=== PATIENT | female | born 1965 | race Caucasian/White ===

== ENCOUNTER 2016-12-20 16:34 | Emergency (ER) | payer SELFPAY ==
[2016-12-20 16:43] VITALS: BP 125/80; BMI 49.9
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
[2016-12-20] MEDS ORDERED: SILVADENE ONE (20:46)
[2016-12-20] MEDS ORDERED: MOTRIN TAB 800 MG PO ONE ×2 (21:22→21:26)
[2016-12-20] MEDS ORDERED: SILVADENE TOP NR (22:00)
== END 2016-12-20 21:33 | disposition home or self-care (01) ==
LOC: ER 16:47
PROC: 2W28X4Z Dressing of Right Upper Extremity using Bandage (ICD-10-PCS; principal; 2016-12-20)
DX: T23.121A Burn of first degree of single right finger (nail) except thumb, initial encounter (principal); T23.221A Burn of second degree of single right finger (nail) except thumb, initial encounter; X10.2XXA Contact with fats and cooking oils, initial encounter
CPT/HCPCS: 16020; 99282; 99283

== ENCOUNTER → 2017-05-28 | Outpatient (CLI) | payer SELFPAY ==
--- NOTE | 2017-05-28 13:03 | RAD ---
HISTORY: Pain Study: Right knee series Comparison: None Findings: There is moderate to severe joint space narrowing in the knee which is more prominent medially with p rominent osteophytes throughout. No fracture or dislocation is seen. There is moderate narrowing amximus g the patellofemoral joint with mild osteophytes throughout. The bones are well mineralized. There is no joint effusion and no calcifications are seen in the joint. IMPRESSION: Moderately severe osteoarthritic changes in the knee which is more prominent medially and moderate pa tellofemoral degenerative changes with no acute abnormality seen. Reported By:
--- NOTE | 2017-05-28 15:14 | US ---
History: Right lower quadrant pain, history of ovarian cysts, previous hysterectomy Study: Ultrasound transvaginal Findings: Transvaginal imaging of the pelvis and limited transabdominal imaging is performed. The shar greer is surgically absent. The ovaries are fairly symmetric in size with no solid mass or cyst demonst rated. There is no free fluid. Impression: Previous hysterectomy. Reported By:
== END | disposition home or self-care (01) ==
LOC: RAD 10:30
PROVIDERS: ATTEND Family Medicine
DX: N83.202 Unspecified ovarian cyst, left side (principal); N83.201 Unspecified ovarian cyst, right side; M25.561 Pain in right knee; M17.11 Unilateral primary osteoarthritis, right knee
CPT/HCPCS: 73560; 76830

== ENCOUNTER → 2017-06-21 | Outpatient (CLI) | payer SELFPAY ==
[2017-06-21 11:20] LABS: HEMOGLOBIN A1C 6.1 % (4.5-6.2)
[2017-06-21 11:29] LABS: ALANINE AMINOTRANSFERASE 39 Units/L (12-78); ALBUMIN 3.4 g/dL (3.4-5.0); ALKALINE PHOSPHATASE 65 Units/L (46-116); ASPARTATE AMINO TRANSFERASE 19 Units/L (15-37); BLOOD UREA NITROGEN 16 mg/dL (7-18); CARBON DIOXIDE 27.1 mmol/L (21-32); CHLORIDE 102 mmol/L (98-107); CHOL/HDL RATIO 3.6 (0.0-5.0); CHOLESTEROL 136 mg/dL (0-200); COR NA(FOR HYPERGLY) 140 mmol/L (136-145); CREATININE 0.93 mg/dL (0.55-1.02); HDL CHOLESTEROL 38 mg/dL (40-60); SODIUM 139 mmol/L (136-145); TOTAL PROTEIN 7.4 g/dL (6.4-8.2); TRIGLYCERIDES 84 mg/dL (0-150); TSH (3RD GENERATION) 1.409 uIU/mL (0.358-3.74); eGFR BLACK RACES > 60 (>60); eGFR NON BLACK RACES > 60 (>60)
--- NOTE | 2017-06-21 17:55 | CT ---
Indication: Back pain . Exam: CT scan lumbar spine without contrast. Technique: Axial spiral images were obtained from the level of T11 through the upper lumbar region wi thout contrast reconstructed at 2 mm intervals with coronal and sagittal multiplanar reconstructions. Findings: The lumbar vertebra are well aligned. There is adox-ip-rmlsodus disc space narrowing throug hout with minimal subluxation of L4 on L5. No fracture is seen. There are no pars defects. There is n o lytic or blastic lesion. The paravertebral soft tissues are normal. There is a moderate disc bulge at L4-5 which along with the subluxation is causing moderately severe circumferential dural sac compr ession . There is a small disc bulge at L3-4. The neural foramina clear throughout and the paraverteb ral soft tissues are normal. There are moderate hypertrophic changes of the facets throughout with li gamentum flavum hypertrophy causing diffuse moderate spinal stenosis which is most prominent at L4-5. Impression: Moderate degenerative disc changes throughout which is most prominent inferiorly with no acute abnorm ality seen Minimal subluxation of L4 on L5 which is probably degenerative in etiology and is associated with a m oderate disc bulge which along with the spinal stenosis is causing moderate to severe moderately ed re circumferential dural sac compression at this level. Small disc bulge at L3-4. Moderate osteoarthritic changes of the facets throughout causing diffuse moderate spinal stenosis whi ch is most severe at L4-5. Reported By:
== END ==
LOC: RAD 10:41
PROVIDERS: ATTEND Family Medicine
DX: I10 Essential (primary) hypertension (principal); E11.9 Type 2 diabetes mellitus without complications; R53.83 Other fatigue; F44.81 Dissociative identity disorder; M54.5 Low back pain
CPT/HCPCS: 36415; 72131; 80053; 80061; 83036; 84443

== ENCOUNTER → 2017-11-26 | Outpatient (CLI) | payer OTHER ==
--- NOTE | 2017-11-26 11:40 | MG ---
HISTORY: SCREENING Comparison: Multiple priors dating back to August 22, 2010 FINDINGS: Bilateral CC and MLO projections of the right and left breast were obtained. Scattered fibroglandula r tissue is seen to be present without significant interval change. No suspicious architectural dist ortion, mass or clustered microcalcifications can be observed to suggest malignancy. No skin thicken ing or nipple retraction is appreciated. No pathological lymphadenopathy can be identified. Benign- appearing calcifications are noted within the right and left breast. IMPRESSION: NO RADIOGRAPHIC EVIDENCE OF MALIGNANCY. ACR CATEGORY 2 - benign findings. FOLLOW-UP EXAM 1 YEAR. Diagnostic CAD was utilized and reviewed. * 0 (ZERO) - ASSESSMENT INCOMPLETE; ADDITIONAL IMAGING IS NEEDED. * 1/1 (ONE) - NEGATIVE. * 2/II (TWO) - BENIGN FINDINGS. * 3/III (THREE) - PROBABLY BENIGN FINDING; SHORT INTERVAL FOLLOW-UP SUGGESTED. * 4/IV (FOUR) - SUSPICIOUS ABNORMALITY; BIOPSY SHOULD BE CONSIDERED. * 5/V - HIGHLY SUSPICIOUS OF MALIGNANCY; BIOPSY SHOULD BE PERFORMED. A NEGATIVE X-RAY REPORT SHOULD NOT DELAY BIOPSY IF A DOMINANT OR CLINICALLY SUSPICIOUS MASS IS PRESENT; 4 TO 8 PERCENT OF CANCERS ARE NOT IDENTIFIED BY X-RAY. A NEGA TIVE REPORT MAY REINFORCE THE CLINICAL IMPRESSION. ADENOSIS AND DENSE BREASTS MAY OBSCURE AN UNDERLY ING NEOPLASM. Reported By:
== END ==
LOC: RAD 09:24
PROVIDERS: ATTEND Internal Medicine
DX: Z12.31 Encounter for screening mammogram for malignant neoplasm of breast (principal)
CPT/HCPCS: 77067